=== PATIENT | female | born 1985 | race Caucasian/White ===

== ENCOUNTER 2020-09-07 15:49 | Outpatient (REF) | payer SELFPAY ==
[2020-09-07 17:01] LABS: COVID-19 Test Negative (Negative)
== END 2020-09-07 15:50 | disposition home or self-care (01) ==
LOC: HO.LAB 15:49
PROVIDERS: PCP Internal Medicine; Visit Provider Internal Medicine
DX: Z20.828 Contact with and (suspected) exposure to other viral communicable diseases (principal)
CPT/HCPCS: 87635

== ENCOUNTER 2020-09-10 13:41 | Outpatient (REF) | payer BC, OTHER, SELFPAY ==
[2020-09-10 13:59] LABS: COVID-19 Test Negative (Negative)
== END 2020-09-10 13:42 | disposition home or self-care (01) ==
LOC: HO.LAB 13:41
PROVIDERS: Visit Provider Internal Medicine
DX: Z20.828 Contact with and (suspected) exposure to other viral communicable diseases (principal)
CPT/HCPCS: 87635

== ENCOUNTER 2020-09-14 14:58 | Outpatient (REF) | payer OTHER, SELFPAY ==
[2020-09-14 15:15] LABS: COVID-19 Test Negative (Negative)
== END 2020-09-14 14:59 | disposition home or self-care (01) ==
LOC: HO.LAB 14:58
PROVIDERS: Visit Provider Internal Medicine
DX: Z20.828 Contact with and (suspected) exposure to other viral communicable diseases (principal)
CPT/HCPCS: 87635

== ENCOUNTER 2020-12-28 06:38 | Outpatient (REF) | payer OTHER, SELFPAY ==
[2020-12-28 07:06] LABS: COVID-19 Test Negative (Negative)
== END 2020-12-28 06:39 | disposition home or self-care (01) ==
LOC: HO.EMPCOV 06:38
PROVIDERS: Visit Provider Internal Medicine
DX: Z20.822 Contact with and (suspected) exposure to COVID-19 (principal)
CPT/HCPCS: 36415; 87635; C9803

== ENCOUNTER 2021-01-15 13:52 | Outpatient (REF) | payer OTHER, SELFPAY ==
[2021-01-15 15:13] LABS: COVID-19 Test Negative (Negative)
== END 2021-01-15 13:53 | disposition home or self-care (01) ==
LOC: HO.EMPCOV 13:52
PROVIDERS: Visit Provider Internal Medicine
DX: Z20.822 Contact with and (suspected) exposure to COVID-19 (principal)
CPT/HCPCS: 36415; 87635; C9803

== ENCOUNTER 2021-01-19 15:03 | Outpatient (REF) | payer OTHER, SELFPAY ==
[2021-01-19 15:26] LABS: COVID-19 Test Negative (Negative)
== END 2021-01-19 15:04 | disposition home or self-care (01) ==
LOC: HO.EMPCOV 15:03
PROVIDERS: Visit Provider Internal Medicine
DX: Z20.822 Contact with and (suspected) exposure to COVID-19 (principal)
CPT/HCPCS: 36415; 87635; C9803; U0003

== ENCOUNTER 2025-06-16 16:01 | Outpatient (AMB) | payer OTHER, SELFPAY ==
--- NOTE | 2025-06-16 16:06 | A.OFFVIS_ITS ---
Intake Visit Reasons: Migraine Allergies diphenhydramine (From Benadryl Allergy) Allergy (Unknown, Verified 06/16/25 16:10) Unknown latex Allergy (Unknown, Verified 06/16/25 16:10) Unknown Medication List - Last Reconciled 06/16/25 by Krystle Delvalle CNP esomeprazole magnesium (Nexium) 20 mg PO DAILY ibuprofen 800 mg PO TID metoclopramide HCl 5 mg PO QIDACHS propranolol 20 mg PO BID sumatriptan succinate take 1 tab at onset of headache; if no relief may repeat 1 tab after at least 2 hrs; max = 4 tabs/24 hr PO HPI Comments Details: 39-year-old woman with migraine. She was doing okay. She was taking propranolol 20mg once a day and migraines were under control. She has not had to use sumatriptan in a few months. She was having some GI issues and was following with GI at [facility]. Sleep was okay. [facility] Medical History (Updated 06/16/25 @ 16:09 by Krystle Delvalle CNP) Tension headache Anxiety Migraine with aura Migraine without aura Review of Systems Const Denies chills, Denies daytime sleepiness, Reports difficulty sleeping, Denies fatigue, Denies fever(s), Denies frequent falls, Reports headache(s), Denies increased appetite, Denies poor appetite, Denies snoring, Denies weakness, Denies weight gain and Denies weight loss Eyes Denies loss of vision ENT Denies vertigo, Denies dizziness and Reports headache(s) Card Denies chest pain at rest, Denies chest pain with activity, Denies syncope, Denies leg edema and Denies palpitations Resp Denies snoring GI Denies constipation, Denies heartburn, Denies diarrhea and Denies nausea Denies urinary frequency, Denies urinary incontinence and Denies urinary urgency Musc Denies abnormal gait, Denies numbness and Denies tingling Skin/Breast Denies dry skin and Denies rash Neuro Denies abnormal gait, Denies vertigo, Denies dizziness, Denies syncope, Denies frequent falls, Reports headache(s), Denies lack of coordination, Denies loss of vision, Denies memory loss, Denies numbness, Denies restless legs, Denies seizure-like activity, Denies tingling, Denies paresthesias, Denies tremor(s) and Denies weakness Psych Denies anxiety, Denies depression, Denies auditory hallucinations, Denies memory loss, Denies visual hallucinations and Denies suicidal ideation Endo Denies fatigue and Denies palpitations Physical Exam Const Other: General Appearance:? normal, in no acute distress. Skin:? no rashes, no significant birthmarks. Heart:? S1, S2 normal, no murmurs. Lungs:? clear anteriorly and posteriorly. Extremities:? no edema. Psych:? alert, oriented, cognitive function intact, cooperative with exam. Neuro Other: Mental Status:?Normal attention, orientation, memory and affect.? Cranial Nerves:?Pupils are equal, round and reactive to light. External occular muscles are intact. Visual moss are full. Face is symmetrical. Facial sensations are normal. Tongue is midline. Palate elevates symmetrically. Shoulder shrugging is normal. Hearing to bedside conversation is normal. Sensory Exam:?....? Coordination:?No ataxia,?no titubation.? Gait Exam: Within normal limits. Cerebellar Signs:?[id number]-[id number] and xark-ap-ysfl is normal.? Extrapyramidal System:?No tremor, rigidity with normal facial expressions.? Pronator Drift:?Not present.? Involuntary Movements:?No tremors seen.? Speech:?Normal.? Assessment & Plan Assessment & Plan (1) Migraine: Code(s): G43.909 - Migraine, unspecified, not intractable, without status migrainosus Category: Medical Qualifiers: Migraine type: unspecified Status migrainosus presence: without status migrainosus Intractability: not intractable Qualified Code(s): G43.909 - Migraine, unspecified, not intractable, without status migrainosus Plan: Decrease propranolol 20mg 1 tablet twice a day Continue sumatriptan 50mg 1 tablet as needed for migraine Continue metoclopramide 5mg 1 tablet as needed for nausea #10 for 30 days (2) Tension headache: Code(s): G44.209 - Tension-type headache, unspecified, not intractable Category: Medical Plan Meds tried: sumatriptan, butalbital, amitriptyline, nortriptyline, propranolol Coding Level of Care Code Est Pt Level 3 (22671) Diagnoses Migraine without status migrainosus, not intractable, unspecified migraine type G43.909 Migraine type: unspecified Status migrainosus presence: without status migrainosus Intractability: not intractable Tension headache G44.209
--- OUTSIDE RECORDS SUMMARY | 2025-06-16 16:09 | XMS_ITS | Data Portability ---
Author Organization [facility], [id number] Address [address] [place] [address] Assessment No assessment recorded. Plan of Treatment Reminders Order Date Submit Date Provider Last Modified By Organization Details Last Modified Time Details Appointments None recorded. Lab None recorded. Referral None recorded. Procedures None recorded. Surgeries None recorded. Imaging None recorded. Medication Orders ciprofloxac in 0.3 % eye drops 2023 024 [facility] [address] [place], [address], 4 15:05:49 cephalexin 500 mg capsule 2022 024 [facility], [address] [place], [address], 4 14:17:42 prednisone 20 mg tablet 2022 024 [facility], [address] [place], [address], 4 14:16:57 triamcinolo ne acetonide 0.1 % topical ointment 2022 024 [facility] [address] [place], [address], 4 14:17:06 Patient TargetsNo targets recorded. Patient Instructions Encounter Date Encounter Id Patient Instructions Last Modified By Organization Details Last Modified Time 06/30/2023 [id number] cellulitis: care instructions Not available 06/30/2023 13:21:07 insect stings an d bites: care instructions Not available 06/30/2023 13:21:07 05/18/2024 [id number] pinkeye: care instructions Not available 05/18/2024 15:05:46 corneal scratches: care instructions Not available 05/18/2024 15:05:46 Reason for Referral None Reported. Problems Name Problem SNOMED Code Status Onset Date Resolution Date Notes Provider Name and Address Organization Details Recorded Time Migraine 71891897 Active 2022 SHELBIE barnes, [place] - [facility] 3 13:07:06 Acute conjunctivi tis of right eye 2145917527729 02 Active 2023 Kimberly Blank NP [address] , [place], [address], [place] - [facility] 4 15:04:18 Abrasion of right cornea 9350227112933 9103 Active 2023 Kimberly Blank NP [address] , [place], [address], [place] - [facility] 4 15:04:26 Problem Notes None recorded. Procedures Surgical History Date Name Laterality Status Provider Name and Address Organization Details Recorded Time 4 Fluorescein Eye Exam completed Kimberly Blank NP [address], [place], [address], [place] - [facility] 05/18/2024 15:08:38 Imaging Results None recorded. Procedure Notes None recorded. Medical Equipment None Reported. Allergies Allergen ID Allergen Name Allergen Category Reaction Reaction Severity Criticality Documentation Date Start Date Code Code System Note Provider Name and Address Organization Details Recorded Time 092990 Benadryl medicatio n Not available Not available Not available 06/30/202327217 7 RxNorm SHELBIE barnes, [place] - [facility] 3 13:06:54 Medications Name Sig Start Date Stop Date Status Note LastModified by Organization Details LastModified Time ibuprofen 800 mg tablet TAKE 1 TABLET BY MOUTH EVERY 8 HOURS NEEDED FOR PAIN (MIGRAINE HEADACHE) . active Not Available Not Available No t Available prednisone 20 mg tablet Take 2 tablets every day by oral route in the morning for 5 days. 05/18 completed Not Available Not Available Not Available sumatriptan 50 mg tablet TAKE 1 TABLET BY MOUTH EVERY DAY NEEDED FOR 30 DAYS active Not Available Not Available No t Available butalbital- acetaminoph en-caffeine 50 mg-325 mg-40 mg tablet TAKE 1 TABLET BY MOUTH EVERY 4 HOURS NEEDED FOR PAIN 05/18 completed Not Available Not Available Not Available metoclopram chelsea 5 mg tablet TAKE 1 TABLET BY MOUTH NEEDED EVERY DAY X30 DAYS 05/18 completed Not Available Not Available Not Available ciprofloxac in 0.3 % eye drops INSTILL 1 DROP INTO AFFECTED EYE(S) BY OPHTHALMI C ROUTE EVERY 2 HOURSWHIL E AWAKE FOR 2 DAYS THEN 1 DROP EVERY 4 HRS WHILE AWAKE FOR 5 DAYS 2023 active Not Available Not Available Not Avai lable cephalexin 500 mg capsule Take 1 capsule every 12 hours by oral route with meals for 10 days. 05/18 completed Not Available Not Available Not Available triamcinolo ne acetonide 0.1 % topical ointment APPLY A THIN LAYER TO THE AFFECTED AREA(S) BY TOPICAL ROUTE 2 TIMES PER DAY x 7-10 s 05/18 completed Not Available Not Available Not Available propranolol 20 mg tablet TAKE 1 TABLET BY MOUTH TWICE A DAY FOR 30 DAYS active Not Available Not Available No t Available ondansetron 4 mg disintegrat ing tablet TAKE 1 TABLET BY MOUTH EVERY 8 HOURS NEEDED FOR NAUSEA/VO MITING 05/18 completed Not Available Not Available Not Available Vitals Date Recorded Body height Body mass index (BMI) Body weight Oxygen saturation Oxygen saturation in Arterial blood by Pulse oximetry Heart rate Body temperature Systolic And Diastolic Provider Name and Address Organization Details Last Updated DateTime 4 149.86 cm 33.3 kg/m2 74671.7 4 g 96 % 96 % 68 /min 98.8 [degF] 123/80 mm[Hg] Corrina Severino PA - [facility] 4 14:14:55 Date Recorded Pain severity - 0-10 verbal numeric rating [Score] - Reported Respiratory rate Heart rate Oxygen saturation Oxygen saturation in Arterial blood by Pulse oximetry Body weight Body mass index (BMI) Body height Systolic And Diastolic Provider Name and Address Organization Details Last Updated DateTime 3 8 19 /min 78 /min 99 % 99 % 39878.0 4 g 30.7 kg/m2 149.86 cm 132/90 mm[Hg] SHELBIE WEST PA - [facility] 3 13:06:36 Social History Question Answer Notes LastModified by [employer] Details LastModified Time Have You Had A Flu Shot This Season? No Information no t available 05/18/2024 If No, Would You Like A Flu Shot Today? No Information not available 05/18/2024 Have You Had Direct Contact, Or Contact During Intimacy, With Monkeypox Rash, Scabs, Or Body Fluids From A Person With Monkeypox? No Information not available 05/18/2024 What Is Your Relationship Status? Information not available 05/18/2024 Have You Recently Traveled Abroad? No Information not available 05/18/2024 Are You Currently In School? No Information not available 05/18/2024 Sex: Unknown Functional Status Question Answer Note LastModified by [employer] Details LastModified Time Do you use any illicit or recreational drugs? No Information not available 05/18/2024 Do you or have you ever used any other forms of tobacco or nicotine? No Information not available 05/18/2024 What is your level of alcohol consumption? None Information not available 05/18/2024 Are you currently employed? Yes Information not available 05/18/2024 Mental Status None recorded. Family History Relationship Description Onset Age of this Age Resolved Age Notes LastModified by Organization Details LastModified Time Father No current problems or disability [email or web address] Not available 06/30 13:07:09 Mother No current problems or disability [email or web address] Not available 06/30 13:07:09 Medical History No medical history recorded. Gynecological History Statement/Question Response Date of LMP 05/02/2024 LMP Definite Obstetrics History GPAL:G 0 P 0 0 0 0 Past Encounters Encounter ID Performer Location Encounter Start Date Encounter Closed Date Diagnosis/Indication Diagnosis SNOMED-CT Code Diagnosis ICD10 Code Diagnosis Note [id number] [facility] [address] [address] 02/24/2018 15:12:14 02/24/2018 16:56:53 [id number] Ever Yates DO [address] [address] 06/30/2023 12:54:20 06/30/2023 13:24:14 Cellulitis of skin 514207153 L03.90 PE consistent with Cellulitis 2/2 bee stingwill Rx antibiotic sTake your antibiotic with food. Eat a yogurt daily or take a probiotic while you are taking the antibiotic .You may use over the counter tylenol or ibuprofen as needed for pain or feverKeep are clean and dryPlease follow up with your PCP in 1 week to recheckPat ient advised to follow up as needed for worsening symptoms or no improvemen Shamika squires concerning red flags with patient and reasons to follow up in the Emergency Department urgently.P atient expressed understand ing of and agreement with the plan as outlined above. Bee sting 855635716 T63. 91XA Rx as above [id number] Kimberly Blank NP _ [address] [address] 05/18/2024 14:08:18 05/18/2024 15:07:04 Abrasion of right cornea 5559793007 8396176 S05.01XA The cornea is the clear surface that covers the front of the eye. When a speck of dirt, a wood chip, an insect, or another object flies into your eye, it can cause a painful scratch on the cornea. Wearing contact lenses too long or rubbing your eyes can also scratch the cornea. Small scratches usually heal in a day or two. Deeper scratches may take longer.If you have had a foreign object removed from your eye or you have a corneal scratch, you will need to watch for infection and vision problems while your eye heals.Foll ow-up care is a sorenson part of your treatment and safety. Be sure to make and go to all appointmen ts, and call your doctor if you are having problems. It's also a good idea to know your test results and keep a list of the medicines you take.How can you care for yourself at home?The doctor probably used a medicine during your exam to numb your eye. When it wears off in 30 to 60 minutes, your eye pain may come back. Take pain medicines exactly as directed.I f the doctor gave you a prescripti on medicine for pain, take it as prescribed .If you are not taking a prescripti on pain medicine, ask your doctor if you can take an over-the-c ounter medicine.D o not take two or more pain medicines at the same time unless the doctor told you to. Many pain medicines have acetaminop hen, which is Tylenol. Too much acetaminop hen (Tylenol) can be harmful.Do not rub your injured eye. Rubbing can make it worse.Use the prescribed eyedrops or ointment as directed. Be sure the dropper or bottle tip is clean. To put in eyedrops or ointment:T ilt your head back, and pull your lower eyelid down with one finger.Nestor p or squirt the medicine inside the lower lid.Close your eye for 30 to 60 seconds to let the drops or ointment move around.Do not touch the ointment or dropper tip to your eyelashes or any other surface.Do not use your contact lens in your hurt eye until your doctor says you can. Also, do not wear eye makeup until your eye has healed.Do not drive if you have blurred vision.Yanira ght light may hurt. Sunglasses can help.To prevent eye injuries in the future, wear safety glasses or goggles when you work with machines or tools, mow the lawn, or ride a bike or motorcycle . Acute conj unctivitis of right eye 9060697893 10032 H10.31 Wash your hands often. Always wash them before and after you treat pinkeye or touch your eyes or face.Use moist cotton or a clean, wet cloth to remove crust. Wipe from the inside corner of the eye to the outside. Use a clean part of the cloth for each wipe.Put cold or warm wet cloths on your eye a few times a day if the eye hurts.Do not wear contact lenses or eye makeup until the pinkeye is gone. Throw away any eye makeup you were using when you got pinkeye. Clean your contacts and storage case. If you wear disposable contacts, use a new pair when your eye has cleared and it is safe to wear contacts again.If the doctor gave you antibiotic ointment or eyedrops, use them as directed. Use the medicine for as long as instructed , even if your eye starts looking better soon. Keep the bottle tip clean, and do not let it touch the eye area.To put in eyedrops or ointment:T ilt your head back, and pull your lower eyelid down with one finger.Nestor p or squirt the medicine inside the lower lid.Close your eye for 30 to 60 seconds to let the drops or ointment move around.Do not touch the ointment or dropper tip to your eyelashes or any other surface.Do not share towels, pillows, or washcloths while you have pinkeye. Health Concerns Section Related Observation LastModified by Organization Detai ls LastModified Time None Recorded Concern Status LastModified by Organization Details LastModified Time None Recorded Advance Directives Directive None Recorded Payers Insurance Date Sequence Insurance Name Policy Number Policy Encarnacion Covered Member ID Encarnacion Member ID Guarantor Name 05/18/2024 1 [facility] [employer] - [facility] (MEDICAID HMO) [id number] Savannah Tian [id number] Savannah Tian 05/18/2024 1 [place] [facility] Savannah Tian [id number] Savannah Tian 05/18/2024 1 [facility] NET PLAN (MEDICAID HMO) MAGUI Tian [id number] Savannah Tian OBGyn Episode No OBEpisode recorded.
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
== END 2025-06-16 16:25 | disposition home or self-care (01) ==
LOC: HO.HSM 16:02
PROVIDERS: Visit Provider Registered Nurse
DX: G43.909 Migraine, unspecified, not intractable, without status migrainosus (principal); G44.209 Tension-type headache, unspecified, not intractable
CPT/HCPCS: 99213

== ENCOUNTER 2025-11-19 13:27 | Outpatient (AMB) | payer OTHER, SELFPAY ==
--- NOTE | 2025-11-19 13:39 | MHC.OFFVIS ---
Intake Visit Reasons: 6m Migraine Allergies diphenhydramine (From Benadryl Allergy) Allergy (Unknown, Verified 11/19/25 13:40) Unknown latex Allergy (Unknown, Verified 11/19/25 13:40) Unknown Medication List - Last Reconciled 11/19/25 by Krystle Delvalle CNP esomeprazole magnesium 40 mg PO QAM ibuprofen 800 mg PO TID metoclopramide HCl 5 mg PO QIDACHS propranolol 20 mg PO DAILY sumatriptan succinate take 1 tab at onset of headache; if no relief may repeat 1 tab after at least 2 hrs; max = 4 tabs/24 hr PO HPI Comments Details: 40-year-old RH woman with migraine. She has been having more migraines over the last 3-4 months. Headaches were primarily left-sided, with pain behind eye, throbbing or pulsating-type, moderately severe with photophobia and sonophobia, and lasting up to 2-3 days. Sometimes she had to lay down in dark, quiet room and sleep, but pain was still there when she woke. She also sometimes had pain to right side of neck. She was taking propranolol 20mg in the morning. She could not tolerate higher dose due to jitteriness. Sumatriptan as needed did not help. She was taking ibuprofen 800mg frequently and that was starting to not help. No specific triggers identified. She was also having some more numbness and tingling to right hand, particularly first three fingers, over the last few months. She was sometimes dropping objects and hand would lock up. [facility] Medical History (Updated 11/19/25 @ 13:56 by Krystle Delvalle CNP) Tension headache Anxiety Migraine with aura Migraine without aura Review of Systems Const Denies chills, Denies daytime sleepiness, Reports difficulty sleeping, Denies fatigue, Denies fever(s), Denies frequent falls, Reports headache(s), Denies increased appetite, Denies poor appetite, Denies snoring, Denies weakness, Denies weight gain and Denies weight loss Eyes Denies loss of vision ENT Denies vertigo, Denies dizziness and Reports headache(s) Card Denies chest pain at rest, Denies chest pain with activity, Denies syncope, Denies leg edema and Denies palpitations Resp Denies snoring GI Denies constipation, Denies heartburn, Denies diarrhea and Denies nausea Denies urinary frequency, Denies urinary incontinence and Denies urinary urgency Musc Denies abnormal gait, Reports numbness and Reports tingling Skin/Breast Denies dry skin and Denies rash Neuro Denies abnormal gait, Denies vertigo, Denies dizziness, Denies syncope, Denies frequent falls, Reports headache(s), Denies lack of coordination, Denies loss of vision, Denies memory loss, Reports numbness, Denies restless legs, Denies seizure-like activity, Reports tingling, Denies paresthesias, Denies tremor(s) and Denies weakness Psych Denies anxiety, Denies depression, Denies auditory hallucinations, Denies memory loss, Denies visual hallucinations and Denies suicidal ideation Endo Denies fatigue and Denies palpitations Physical Exam Const Other: General Appearance:? normal, in no acute distress. Skin:? no rashes, no significant birthmarks. Heart:? S1, S2 normal, no murmurs. Lungs:? clear anteriorly and posteriorly. Extremities:? no edema. Psych:? alert, oriented, cognitive function intact, cooperative with exam. Neuro Other: Mental Status:?Normal attention, orientation, memory and affect.? Cranial Nerves:?Pupils are equal, round and reactive to light. External occular muscles are intact. Visual moss are full. Face is symmetrical. Facial sensations are normal. Tongue is midline. Palate elevates symmetrically. Shoulder shrugging is normal. Hearing to bedside conversation is normal. Motor Exam: 5-/5 R APB. Sensory Exam:?....? Coordination:?No ataxia,?no titubation.? Gait Exam: Within normal limits. Cerebellar Signs:?[id number] is okay. Extrapyramidal System:?No tremor, rigidity with normal facial expressions.? Pronator Drift:?Not present.? Involuntary Movements:?No tremors seen.? Speech:?Normal.? Assessment & Plan Assessment & Plan (1) Migraine: Code(s): G43.909 - Migraine, unspecified, not intractable, without status migrainosus Category: Medical Qualifiers: Migraine type: unspecified Status migrainosus presence: without status migrainosus Intractability: not intractable Qualified Code(s): G43.909 - Migraine, unspecified, not intractable, without status migrainosus Plan: Propranolol 20mg was not helping and she was unable to tolerate higher dose, medication discontinued. Sumatriptan as needed was not helping, medication discontinued. Start topiramate 25mg 1 tablet at bedtime x1 week, then 2 tablets at bedtime, use/side effects reviewed. Start rizatriptan 10mg 1 tablet as needed for migraine. Continue metoclopramide 5mg 1 tablet as needed for nausea #10 for 30 days. She reported using ibuprofen 800mg often, possible there is some component of medication overuse headache - she was educated on this concept, and advised to stop ibuprofen (and other OTC analgesics) completely. (2) Tension headache: Code(s): G44.209 - Tension-type headache, unspecified, not intractable Category: Medical (3) Carpal tunnel syndrome, right: Code(s): G56.01 - Carpal tunnel syndrome, right upper limb Category: Medical Plan: NCV/EMG BUE ordered. Follow up after testing or sooner as needed. Plan Meds tried: sumatriptan, butalbital, amitriptyline, nortriptyline, propranolol Medications: New rizatriptan take 1 tab at onset of headache; if no relief may repeat 1 tab after at least 4 hrs; max = 2 tabs/24 hr PO 10 tabs 5RF 30 days topiramate 25 mg orally 1 tablet at bedtime x1 week, then 2 tablets at bedtime; 60 tabs 2RF 30 days Coding Level of Care Code Est Pt Level 4 (98813) Diagnoses Migraine without status migrainosus, not intractable, unspecified migraine type G43.909 Migraine type: unspecified Status migrainosus presence: without status migrainosus Intractability: not intractable Tension headache G44.209 Carpal tunnel syndrome, right G56.01
--- OUTSIDE RECORDS SUMMARY | 2025-11-19 14:51 | XMS_ITS | Clinical Summary ---
Author Organization [facility] 230 [facility] Address [address] [place] [address] Phone Care Team Providers Care Broiler Manager Name Role Phone Evita Lezama MD Primary Care Prov ider Allergies Active Allergy Reactions Criticality Noted Date Comments Diphenhydramine Hcl Anaphylaxis High 10/24/2013 Latex Hives 10/24/2013 Medications butalbital-aceta minophen-caffein e (FIORICET, ESGIC) 50-325-40 mg per tablet Take 1 tablet by mouth. 10/12/2022 Active EpiPen 2-Laurent 0.3 mg/0.3 mL injection Inject 0.3 mL (0.3 mg total) into the thigh. 09/05/2024 Active nortriptyline (PAMELOR) 10 mg capsule TAKE 1 CAPSULE BY MOUTH EVERY DAY AT BEDTIME FOR 30 DAYS 10/03/2024 Active propranoloL (INDERAL) 20 mg tablet Take 1 tablet (20 mg total) by mouth 1 (one) time. for 30 days Active SUMAtriptan (IMITREX) 50 mg tablet take 1 tablet by mouth every day as needed for 30 days Active ibuprofen (ADVIL,MOTRIN) 800 mg tabletIndication s:Migraine without aura, not intractable, without status migrainosus TAKE 1 TABLET BY MOUTH EVERY 8 HOURS NEEDED FOR PAIN (MIGRAINE HEADACHE). 90 tablet 06/05/2025 Active esomeprazole (NexIUM) [address] capsule TAKE 1 CAPSULE BY MOUTH 1 TIME EACH DAY BEFORE BREAKFAST. DO NOT OPEN CAPSULE. 90 capsule 08/30/2025 Active Active Problems Problem Noted Date Diagnosed Date [...] Encounters Date Type Department Care Team Description 10/22/2025 Telephone Adult Medicine - [place] [address] [place] [address] Evita Snider MD 09/04/2025 Results Follow-Up Gastroenterology - [place] [address] [address] Fatmata Mcpherson NP 09/01/2025 9:38 AM EDT - 09/01/2025 11:59 PM EDT Hospital Encounter [facility] Nuclear Medicine [address] [place] [phone] Right upper quadrant abdominal pain Discharge Disposition: Home or Self Care 09/01/2025 Telephone Gastroenterology - [place] 175 [facility] [address] [address] Fatmata Mcpherson NP from Last 3 Months Immunizations Immunization Administration Dates Next Due DTP 03/20/1989, 6,09/20/1985,1984,04/20/1985 Hepatitis B (Fzfknmm-R-Rppwg , Recombivax HB-Adult) 19yo and older 09/13/2019,05/09/2019 [...] Orientation Straight 06/04/2025 9: 05 AM EDT Last Filed Vital Signs Vital Sign Reading [...] Care Team (Late st Contact Info) Description 11/24/2025 4:30 PM EST Office Visit Adult Medicine - [place] [address] [place] [phone] Asher Esposito PA [address] [place] [address] 12/19/2025 2:00 PM EST Office Visit Obstetrics and Gynecology - [address] [phone] Margaret Henry, ANUSHKA [address] [place] [phone] Health Maintenance Due Date Last Done Comments Breast Cancer Screening 1984 Drug Screen 1984 Non-Opioid Controlled Substance Agreement 1984 HPV Vaccines (1 - 3-dose SCDM series) 2011 Hepatitis B Vaccines (3 of 3 - 19+ 3-dose series) 11/08/2019 09/13/2019, 05/09/2019 HIV Screening 10/29/2022 Hepatitis C Screening 10/29/2022 Social Influencers of Health Screening 10/29/2022 Depression Screening 11/20/2024 COVID-19 Vaccine ( season) 2025 Influenza Vaccine (#1) 2025 09/13/2019 Cervical Cancer Screening: HPV 02/24/2027 02/24/2022 Cholesterol Screening (Lipid Panel) 02/26/2029 02/27/2024 DTaP,Tdap,and Td Vaccines (7 - Td or Tdap) 03/15/2029 03/15/2019, 03/20/1989, 09/17/1986, Additional history exists RSV Immunization Adult Patients (1 - 1-dose 75+ series) 2059 IPV Vaccines Completed 03/20/1989, 08/21, 08/20/1985, Additional [...] Procedure Name Priority Date/Time Associated Diagnosis Comments NM HEPATOBILIARY SYSTEM IMAGING Routine 09/01/2025 11:12 AM EDT Right upper quadrant abdominal pain LIPID PANEL Routine 02/27/2024 HM HPV Routine 02/24/2022 from Last 3 Months or Most Recently Relevant to Health Maintenance Results * NM Hepatobiliary System Imaging (09/01/2025 11:12 AM EDT) Anatomical Region Laterality Modality Body Nuclear Medicine 09/01/2025 11:2 2 AM EDT Impressions 09/01/2025 11:23 AM EDT Impression: No evidence of cystic or common bile duct obstruction. Telerad PA ([id number]) -------- FINAL REPORT -------- Dictated By: Blessing Kurtz Dictated Date: 09/01/2025 11:22 ET Assigned Physician: Blessing Kurtz Reviewed and Electronically Signed By: Blessing Kurtz Signed Date: 09/01/2025 11:23 ET Workstation ID: [id number] Transcribed By: Self Edit Transcribed Date: 09/01/2025 11:22 ET Narrative 09/01/2025 11:23 AM EDT History: Upper abdominal pain. Technique: Continuous anterior imaging of the abdomen was performed for 60 minutes following the intravenous administration of 4.9 mCi technetium 99m Choletec. Findings: The initial image demonstrates a normal, homogeneous pattern of radiotracer distribution throughout the liver. Activity is seen within the bile ducts by 5 minutes, within the gallbladder by 10 minutes, and within the small bowel by 45 minutes. There is normal washout of hepatic activity. Procedure Note Blessing Kurtz MD - 09/01/2025 History: Upper abdominal pain. Technique: Continuous anterior imaging of the abdomen was performed for 60minutes following the intravenous administration of 4.9 mCi technetium 99mCholetec. Findings: The initial image demonstrates a normal, homogeneous pattern ofradiotracer distribution throughout the liver. Activity is seen within thebile ducts by 5 minutes, within the gallbladder by 10 minutes, and withinthe small bowel by 45 minutes. There is normal washout of hepatic activity. IMPRESSION: Impression: No evidence of cystic or common bile duct obstruction. Telerad JOAQUINA ([id number]) -------- FINAL REPORT -------- Dictated By: Blessing Kurtz Dictated Date: 09/01/2025 11:22 ET Assigned Physician: Blessing Kurtz Reviewed and Electronically Signed By: Blessing Kurtz Signed Date: 09/01/2025 11:23 ET Workstation ID: [id number] Transcribed By: Self Edit Transcribed Date: 09/01/2025 11:22 ET Fatmata Mcpherson NP IMG NM PROCEDURES Final Result * Lipid panel (02/27/2024) LDL/HDL Ratio 3 0 - 4 Triglycerides 117 0 - 150 mg/dL Cholesterol 157 0 - 200 mg/dL HDL 57 >=40 mg/dL LDL Cholesterol 77 0 - 100 mg/dL Blood Venous blood specimen / Unknown Historical Provider LAB BLOOD ORDERABLES Obdulia l Result * Cervical Cancer Screening: HPV (02/24/2022) Cervical Cancer Screening: HPV abstracted negative Historical Provider HEALTH MAINTENANCE Final Result from Last 3 Months or Most Recently Relevant to Health Maintenance Insurance [facility] [employer] Care Teams Broiler Manager Relationship Specialty Start Date End Date Evita Lezama MD [address] [place] [id number] PCP - General Internal Medicine 12/19/14
--- OUTSIDE RECORDS SUMMARY | 2025-11-19 14:51 | XMS_ITS ---
Author Name [facility] Organization Unknown Care Team Organization Name Specialty Phone Email Start Date End Da te [facility] MAHSA RUDOLPH Primary Care 01/25/2023 07/08/2024 [facility] Cathie Corbin Primary Care 09/27/20222023
== END 2025-11-19 13:59 | disposition home or self-care (01) ==
LOC: HO.HSM 13:28
PROVIDERS: Visit Provider Registered Nurse
DX: G43.909 Migraine, unspecified, not intractable, without status migrainosus (principal); G44.209 Tension-type headache, unspecified, not intractable; G56.01 Carpal tunnel syndrome, right upper limb
CPT/HCPCS: 99214